=== PATIENT | male | born 1995 | race Caucasian/White ===

== ENCOUNTER 2025-07-19 03:43 | Emergency (ER) | payer MEDICAID ==
[2025-07-19 04:13] LABS: BASOPHILS ABSOLUTE AUTO 0.07 K/uL (0.00-0.10); BASOPHILS PERCENT AUTO 0.9 % (0.1-1.3); EOSINOPHILS ABSOLUTE AUTO 0.25 K/uL (0.00-0.40); EOSINOPHILS PERCENT AUTO 3.1 % (0.0-5.4); IMMATURE GRAN PERCENT AUTO 0.1 % (0.0-0.7); LYMPHOCYTES ABSOLUTE AUTO 2.26 K/uL (0.8-3.3); LYMPHOCYTES PERCENT AUTO 27.6 % (11.4-47.7); MONOCYTES ABSOLUTE AUTO 0.73 K/uL (0.20-0.90); MONOCYTES PERCENT AUTO 8.9 % (3.3-12.6); NEUTROPHILS ABSOLUTE AUTO 4.87 K/uL (1.0-7.6); NEUTROPHILS PERCENT AUTO 59.4 % (40.0-78.1); PLATELET COUNT,PLT 234 K/uL (130-375); RED BLOOD CELL COUNT 4.29 M/uL (4.14-5.76); WHITE BLOOD CELL COUNT,WBC 8.2 K/uL (3.2-11.0)
[2025-07-19 04:14] LABS: IMMATURE GRAN ABSOLUTE AUTO 0.01 K/uL (0.00-0.23)
== END 2025-07-19 05:06 | disposition home or self-care (01) ==
LOC: JP.ED 03:43
DX: K92.1 Melena (principal); Z88.8 Allergy status to other drugs, medicaments and biological substances; Z86.16 Personal history of COVID-19
CPT/HCPCS: 36415; 82272; 85025; 87046; 87177; 87209; 87427; 89055; 99284